=== PATIENT | female | born 1950 | race Caucasian/White ===

== ENCOUNTER 2019-05-12 12:19 | Emergency (ER) | payer MEDICARE, OTHER | END 2019-05-12 14:24 | disposition home or self-care (01) | LOC: EDH 12:19 | DX: R05 Cough (principal); J34.89 Other specified disorders of nose and nasal sinuses; E78.5 Hyperlipidemia, unspecified; Z87.891 Personal history of nicotine dependence | CPT/HCPCS: 71046; 87804 ==